=== PATIENT | female | born 1965 | race Caucasian/White ===

== ENCOUNTER 2016-12-06 04:29 | Emergency (ER) | payer MEDICARE, OTHER ==
[~2016-12-06] VITALS: Ht 160 cm; Wt 119.0 kg
[~2016-12-06 04:29] MED LIST: BENZ1 PO; DILA100C PO; LITH300 PO; NAPR250T57 PO; OMEP20TA PO; PALI234P IM; ROBA750T3 PO; ZOFR4TAB PO
[2016-12-06 04:34] VITALS: BP 153/74; PULSE 90; RESP 18; TEMP 98.2; O2SAT 97
[2016-12-06] MEDS ORDERED: LITH600C PO (04:40)
[2016-12-06] MEDS ORDERED: BACT800T5 PO (05:08)
--- NOTE | 2016-12-06 05:09 | PD ---
HPI Chief Complaint: Lump, Cyst, Hernia Time Seen by Provider: 04:52 Travel History International Travel<30 days: No Contact w/Intl Traveler<30days: No Traveled to known affect area: No History of Present Illness HPI The patient is a 51-year-old female who complains of a painful cyst on the skin of the right lower abdomen for 10 days. She states her last tetanus shot was approximately 5 years ago. PFSH Past Medical History Hx Anticoagulant Therapy: No Arthritis: Yes (SPINE) Asthma: Yes Autoimmune Disease: No Bipolar Disorder: Yes Anxiety: Yes Depression: Yes Heart Rhythm Problems: No Cancer: No Cardiovascular Problems: Yes (HEART MURMUR) High Cholesterol: Yes Chemotherapy: No Chest Pain: No Congestive Heart Failure: No COPD: No Cerebrovascular Accident: No Diabetes: No Diminished Hearing: Yes (SLIGHT [place] IN RIGHT EAR) Endocrine: Yes Gastrointestinal Disorders: Yes (HEARTBURN) GERD: Yes Genitourinary: No Headaches: No Hiatal Hernia: No Hypertension: Yes Immune Disorder: No Implanted Vascular Access Dvce: No Insomnia: Yes Kidney Stones: No Neurologic: Yes Psychiatric: Yes (history of Bipolar 1) Reproductive: No Respiratory: Yes (BRONCHITIS) Immunizations Current: Yes Migraines: No Radiation Therapy: No Renal Failure: No Schizophrenia: Yes Seizures: Yes (LAST SZ 10 YRS AGO, IS COMPLIANT WITH DILANTIN) Sickle Cell Disease: No Thyroid Disease: No Ulcer: Yes Tetanus Vaccination: > 5 Years Influenza Vaccination: Yes ?: Not Menopausal: Yes Ovarian Cysts: Yes (2 OVARIAN CYST) Dilation and Curettage (D&C): Yes Past Surgical History Abdominal Surgery: No AICD: No Arteriovenous Shunt: No Cardiac Surgery: No Ear Surgery: No Endocrine Surgery: No Eye Surgery: No Genitourinary Surgery: No Gynecologic Surgery: Yes Hysterectomy: No Insulin Pump: No Joint Replacement: No Pacemaker: No Thoracic Surgery: No Tonsillectomy: Yes Other Surgery: Yes (TUBES IN EARS A CHILD) Social History Alcohol Use: No Tobacco Use: Yes (03/08 PPD) Substance Use: No (denies ) Allergies-Medications (Allergen,Severity, Reaction): Coded Allergies: fluoxetine (Unverified Allergy, Intermediate, "ALMOST KILLED MYSELF", 12/06) haloperidol (Unverified Allergy, Intermediate, tremers, 12/06/16) hydroxyzine (Unverified Allergy, Intermediate, HALLUCINATIONS, 12/06/16) states she is on it now prochlorperazine (Unverified Allergy, Intermediate, HALUCINATION, 12/06/16) ziprasidone (Unverified Adverse Reaction, Intermediate, elevates bloos sugars, 12/06/16) Reported Meds & Prescriptions Reported Meds & Active Scripts Active Omeprazole 20 Mg Tab 20 Mg PO DAILY Dilantin (Phenytoin Extended) 100 Mg Cap 400 Mg PO BID Reported [place] Carbonate 600 Mg Cap 600 Mg PO BID Review of Systems Except as stated in HPI: all other systems reviewed are Neg Physical Exam Narrative GENERAL: Well-nourished, obese patient in slight apparent distress with her abscess/cellulitis. Her vital signs show blood pressure 153/74 but otherwise normal.. SKIN: Focused skin assessment warm/dry. There is a 1 cm diameter abscess on the skin near the belt line on the right. It is surrounded by 10 x 5 cm cellulitic area. HEAD: Normocephalic. EYES: No scleral icterus. No injection or drainage. NECK: Supple, trachea midline. No JVD or lymphadenopathy. CARDIOVASCULAR: Regular rate and rhythm without murmurs, gallops, or rubs. RESPIRATORY: Breath sounds equal bilaterally. No accessory muscle use. GASTROINTESTINAL: Abdomen soft, non-tender, nondistended. MUSCULOSKELETAL: No cyanosis, or edema. BACK: Nontender without obvious deformity. No CVA tenderness. Data Data Last Documented VS Vital Signs Date Time Temp Pulse Resp B/P (MAP) Pulse Ox O2 Delivery O2 Flow Rate FiO2 12/06/16 04:34 98.2 90 18 153/74 (100) 97 MDM Medical Decision Making Medical Screen Exam Complete: Yes Emergency Medical Condition: Yes Medical Record Reviewed: Yes Differential Diagnosis Abscess, cellulitis, sebaceous cyst Narrative Course The patient has a small abscess which is surrounded by a fairly large area of cellulitis. She'll be given Septra DS to take twice daily for 7 days. She needs to apply warm compresses to the area of the abscess 3 times daily for at least 5 days. If there are any problems, please return to the emergency department. Procedures Procedure Narrative The area was prepped with Betadine. Lidocaine field block was used for local anesthesia. Under sterile technique, a #11 blade was used and a 1 cm incision was made. A fair amount of pus was recovered for this small abscess. The patient tolerated the procedure fairly well. Diagnosis Primary Impression: Abscess Additional Impressions: Encounter for incision and drainage procedure Cellulitis Additional Instructions: For the first 4 days soak or train warm water in the shower on this abscess for about 30 minutes 3 times daily. After 4 days you can cut back to twice a day than once a day etc. The antibiotic is one tablet twice daily for 10 days. If you have problems, please return to emergency department. Med/Other Pt SpecificInfo: Prescription(s) given Scripts Sulfamethoxazole-Trimethoprim (Bactrim DS) 800-160 Mg Tab 1 TAB PO BID for Infection, #20 TAB 0 Refills Prov: Severino Mitchell MD 12/06/16 Disposition: 01 DISCHARGE HOME Condition: Stable Severino Mitchell MD Dec 06, 2016 05:09
[2016-12-06] MEDS ORDERED: SULFAMETHOXAZOLE-TRIMETHOPRIM DS 800-160 MG TAB PO ONE (05:15)
[2016-12-17] MEDS ORDERED: METO25TA3 PO (08:46)
[2016-12-17] MEDS ORDERED: AUGM500T7 PO (08:46)
[2016-12-17] MEDS ORDERED: METF500T PO (08:46)
[2016-12-17] MEDS ORDERED: GLIP5TAB8 PO (08:46)
[2016-12-17] MEDS ORDERED: GLUCKIT15 ×2 (08:49→08:51)
[2016-12-17] MEDS ORDERED: LANCETS1 MI1 ×3 (08:49→13:43)
[2016-12-17] MEDS ORDERED: GLUCTES12 ×3 (08:49→13:43)
[2016-12-17] MEDS ORDERED: OMEP20TA PO ×2 (08:49→08:51)
[2016-12-27] MEDS ORDERED: SERO100T PO (16:11)
[2016-12-27] MEDS ORDERED: COGE1INJ IM (16:11)
== END 2016-12-06 05:25 | disposition home or self-care (01) ==
LOC: PHED 04:29
DX: L02.211 Cutaneous abscess of abdominal wall (principal); E78.00 Pure hypercholesterolemia, unspecified; I10 Essential (primary) hypertension
CPT/HCPCS: 10060; 87070; 87205

== ENCOUNTER 2016-12-17 09:34 | Emergency (ER) | payer MEDICARE, OTHER ==
[~2016-12-17] VITALS: Ht 160 cm; Wt 120.0 kg
[~2016-12-17 09:34] MED LIST changes: +AUGM500T7 PO; +BACT800T5 PO; -BENZ1 PO; +GLIP5TAB8 PO; +GLUCKIT15; +GLUCTES12; +LANCETS1 MI1; -LITH300 PO; +LITH600C PO; +METF500T PO; +METO25TA3 PO; -NAPR250T57 PO; -PALI234P IM; -ROBA750T3 PO; -ZOFR4TAB PO
[2016-12-17 09:36] VITALS: BP 164/87; PULSE 95; RESP 15; TEMP 98.5; O2SAT 99
[2016-12-17] MEDS ORDERED: SODIUM CHLOR 0.9% 1000 ML INJ 1,000 ML IV ONE ×2 (09:56→10:26)
[2016-12-17] MEDS ORDERED: SODIUM CHLORIDE 0.9% FLUSH 10 ML FLUSH IVF PRN (10:00)
--- NOTE | 2016-12-17 10:03 | PD ---
HPI Chief Complaint: Abnormal Results Time Seen by Provider: 09:49 Travel History International Travel<30 days: No Contact w/Intl Traveler<30days: No Traveled to known affect area: No History of Present Illness HPI This is a 51-year-old female who presents to the emergency department with high blood sugar. She went to her primary care doctor this morning. She said she wasn't feeling well and has had a lot of nausea and abdominal cramping, and polyuria and polydypsia, constant, severe, worsening for several days. Patient was recently hospitalized at [facility] in the intensive care unit for high blood sugar. This is the first time she had been diagnosed with diabetes. She says she was given an vague injection 3 months ago which is a new medication for her. She says years ago she was started on Geodon and that caused her to have high blood sugar but when she got off of that her blood sugar was fine. PFSH Past Medical History Hx Anticoagulant Therapy: Yes (ASA) Arthritis: Yes (SPINE) Asthma: Yes Autoimmune Disease: No Bipolar Disorder: Yes Anxiety: Yes Depression: Yes Heart Rhythm Problems: No Cancer: No Cardiovascular Problems: Yes (HEART MURMUR) High Cholesterol: Yes Chemotherapy: No Chest Pain: No Congestive Heart Failure: No COPD: No Cerebrovascular Accident: No Diabetes: Yes (METFORMIN) Diminished Hearing: Yes (SLIGHT [place] IN RIGHT EAR) Endocrine: Yes Gastrointestinal Disorders: Yes (HEARTBURN) GERD: Yes Genitourinary: No Headaches: No Hiatal Hernia: No Hypertension: Yes Immune Disorder: No Implanted Vascular Access Dvce: No Insomnia: Yes Kidney Stones: No Neurologic: Yes Psychiatric: Yes (history of Bipolar 1) Reproductive: No Respiratory: Yes (BRONCHITIS) Immunizations Current: Yes Migraines: No Radiation Therapy: No Renal Failure: No Schizophrenia: Yes Seizures: Yes (LAST SZ 10 YRS AGO, IS COMPLIANT WITH DILANTIN) Sickle Cell Disease: No Thyroid Disease: No Ulcer: Yes Menopausal: Yes Ovarian Cysts: Yes (2 OVARIAN CYST) Dilation and Curettage (D&C): Yes Past Surgical History Abdominal Surgery: No AICD: No Arteriovenous Shunt: No Cardiac Surgery: No Ear Surgery: No Endocrine Surgery: No Eye Surgery: No Genitourinary Surgery: No Gynecologic Surgery: Yes Hysterectomy: No Insulin Pump: No Joint Replacement: No Pacemaker: No Thoracic Surgery: No Tonsillectomy: Yes Other Surgery: Yes (TUBES IN EARS A CHILD) Social History Alcohol Use: No Tobacco Use: Yes (1/2 PPD) Substance Use: No (denies ) Allergies-Medications (Allergen,Severity, Reaction): Coded Allergies: fluoxetine (Unverified Allergy, Intermediate, "ALMOST KILLED MYSELF", ) haloperidol (Unverified Allergy, Intermediate, tremers, 12/17/16) hydroxyzine (Unverified Allergy, Intermediate, HALLUCINATIONS, 12/17/16) states she is on it now prochlorperazine (Unverified Allergy, Intermediate, HALUCINATION, 12/17/16 ) ziprasidone (Unverified Adverse Reaction, Intermediate, elevates bloos sugars, 12/17/16) Reported Meds & Prescriptions Reported Meds & Active Scripts Active Glucocom Test Strips (Blood Glucose Test Strips) 1 Love Love Ea .ROUTE DIRECTED Lancets 1 Mis Mis Ea .ROUTE DIRECTED Glucocom Blood Glucose Mo W/Device (Device) 1 Kit Kit Kit .ROUTE DIRECTED Omeprazole 20 Mg Tab 20 Mg PO DAILY Metoprolol Tartrate 25 Mg Tab 25 Mg PO BID Dilantin (Phenytoin Extended) 100 Mg Cap 400 Mg PO BID Reported Metformin (Metformin HCl) 500 Mg Tab 500 Mg PO BIDPC Glipizide 5 Mg Tab 5 Mg PO BIDAC Take 30 minutes before a meal Augmentin (Amoxicillin-Clavulanate) 500-125 mg Tab 500 Mg PO Q8H [place] Carbonate 600 Mg Cap 600 Mg PO BID Review of Systems Except as stated in HPI: all other systems reviewed are Neg Physical Exam Narrative GENERAL:Well appearing, no acute distress SKIN: Focused skin assessment warm and dry. HEAD: Atraumatic. Normocephalic. EYES: Pupils equal and round. No injection or drainage. ENT: Moist mucous membranes NECK: Trachea midline. CARDIOVASCULAR: Regular rate and rhythm. No murmur appreciated. RESPIRATORY: Clear to auscultation. Breath sounds equal bilaterally. GASTROINTESTINAL: Abdomen soft, non-tender, nondistended. Induration in the right lower abdomen over an area where the patient reportedly had an incision and drainage. No erythema or fluctuance currently. AVIATION ELECTRICIAN: Some folliculitis with no definite abscess. MUSCULOSKELETAL: No obvious deformities. NEUROLOGICAL: Awake and alert. No obvious cranial nerve deficits. Moving all extremities. PSYCHIATRIC: Intermittently tearful. Data Data Last Documented VS Vital Signs Date Time Temp Pulse Resp B/P (MAP) Pulse Ox O2 Delivery O2 Flow Rate FiO2 12/17/16 10:13 85 18 155/91 (112) 98 Room Air 12/17/16 09:36 98.5 Orders Orders Complete Blood Count With Diff (12/17/16 09:56) Comprehensive Metabolic Panel (12/17/16 09:56) Beta Hydroxybutyrate (Acetone) (12/17/16 09:56) Urinalysis - C+S If Indicated (12/17/16 09:56) Ecg Monitoring (12/17/16 09:56) Iv Access Insert/Monitor (12/17/16 09:56) Oximetry (12/17/16 09:56) Sodium Chlor 0.9% 1000 Ml Inj (Ns 1000 M (12/17/16 09:56) Sodium Chlor 0.9% 1000 Ml Inj (Ns 1000 M (12/17/16 10:26) Sodium Chloride 0.9% Flush (Ns Flush) (12/17/16 10:00) Insulin Human Regular Inj (Novolin R Inj (12/17/16 11:45) Insulin Human Regular Inj (Novolin R Inj (12/17/16 12:15) Labs Laboratory Tests Test 12/17/16 10:10 White Blood Count 7.9 TH/MM3 Red Blood Count 4.80 MIL/MM3 Hemoglobin 14.0 GM/DL Hematocrit 40.4 % Mean Corpuscular Volume 84.3 FL Mean Corpuscular Hemoglobin 29.1 PG Mean Corpuscular Hemoglobin Concent 34.6 % Red Cell Distribution Width 13.6 % Platelet Count 308 TH/MM3 Mean Platelet Volume 8.3 FL Neutrophils (%) (Auto) 65.0 % Lymphocytes (%) (Auto) 22.3 % Monocytes (%) (Auto) 9.1 % Eosinophils (%) (Auto) 2.4 % Basophils (%) (Auto) 1.2 % Neutrophils # (Auto) 5.1 TH/MM3 Lymphocytes # (Auto) 1.8 TH/MM3 Monocytes # (Auto) 0.7 TH/MM3 Eosinophils # (Auto) 0.2 TH/MM3 Basophils # (Auto) 0.1 TH/MM3 CBC Comment DIFF FINAL Differential Comment Blood Urea Nitrogen 7 MG/DL Creatinine 0.61 MG/DL Random Glucose 393 MG/DL Total Protein 6.9 GM/DL Albumin 3.3 GM/DL Calcium Level 10.2 MG/DL Alkaline Phosphatase 155 U/L Aspartate Amino Transf (AST/SGOT) 69 U/L Alanine Aminotransferase (ALT/SGPT) 74 U/L Total Bilirubin 0.3 MG/DL Sodium Level 131 MEQ/L Potassium Level 3.8 MEQ/L Chloride Level 100 MEQ/L Carbon Dioxide Level 20.6 MEQ/L Anion Gap 10 MEQ/L Estimat Glomerular Filtration Rate 104 ML/MIN B-Hydroxybutyrate 0.86 MMOL/L MDM Medical Decision Making Medical Screen Exam Complete: Yes Emergency Medical Condition: Yes Interpretation(s) Afebrile, mild tachycardia, hypertensive No leukocytosis Mild hyponatremia Hyperglycemia Beta hydroxybutyrate slightly higher than normal Anion gap is normal Differential Diagnosis Hyperglycemia, DKA, electrolyte abnormality Narrative Course This is a 51-year-old female who presents to the emergency department with fatigue, nausea, polydipsia and polyuria. She has a new diagnosis of diabetes. Labs demonstrate hyperglycemia with no anion gap. She was given 2 L of IV fluid and 6 units of subcutaneous insulin. I spoke to her primary care physician who would like to increase her metformin 1000 twice a day. I think the patient can be managed as an outpatient. She was also given some counseling regarding diabetic diet. Diagnosis Primary Impression: Type 2 diabetes mellitus Qualified Codes: E11.9 - Type 2 diabetes mellitus without complications Patient Instructions: General Instructions Additional Instructions: If you develop severe chest pain, shortness of breath, sweating, lightheadedness , dizziness or difficulty breathing return to the emergency department immediately. Followup with your primary care physician in 2-3 days if your symptoms are not resolved. Med/Other Pt SpecificInfo: Prescription(s) given Scripts Metformin (Metformin) 1,000 Mg Tab 1000 MG PO BIDPC for Blood Sugar Management, #60 TAB 0 Refills Prov: Cyndy Nieves MD 12/17/16 Disposition: 01 DISCHARGE HOME Condition: Stable Cyndy Nieves MD Dec 17, 2016 10:03
[2016-12-17 10:13] VITALS: BP 155/91; PULSE 85; RESP 18; O2SAT 100; O2SAT 98
[2016-12-17 10:45] LABS: AUTOMATED NEUTROPHIL # 5.1 TH/MM3 (1.8-7.7); BASOPHIL # 0.1 TH/MM3 (0-0.2); BASOPHIL % 1.2 % (0.0-2.0); EOSINOPHIL # 0.2 TH/MM3 (0-0.4); EOSINOPHIL % 2.4 % (0.0-4.0); HEMATOCRIT 40.4 % (35.0-46.0); HEMO FLAGS DIFF FINAL; LYMPH % 22.3 % (9.0-44.0); LYMPHOCYTE # 1.8 TH/MM3 (1.0-4.8); MEAN CELL VOLUME 84.3 FL (80.0-100.0); MEAN CORPUSCULAR HEMOGLOBIN 29.1 PG (27.0-34.0); MEAN CORPUSCULAR HGB CONC 34.6 % (32.0-36.0); MONO % 9.1 % (0.0-8.0); PLATELET COUNT 308 TH/MM3 (150-450); RED CELL DISTRIBUTION WIDTH 13.6 % (11.6-17.2); WHITE BLOOD COUNT 7.9 TH/MM3 (4.0-11.0)
[2016-12-17 11:00] LABS: ANION GAP 10 MEQ/L (5-15); AST (GOT) 69 U/L (15-37); BICARBONATE 20.6 MEQ/L (21.0-32.0); BLOOD UREA NITROGEN 7 MG/DL (7-18); CHLORIDE 100 MEQ/L (98-107); GLOMERULAR FILTRATION RATE 104 ML/MIN (>89); POTASSIUM 3.8 MEQ/L (3.5-5.1); SODIUM (NA) 131 MEQ/L (136-145)
[2016-12-17 11:06] LABS: ALKALINE PHOSPHATASE 155 U/L (45-117); ALT (GPT) 74 U/L (10-53); BETA-HYDROXYBUTYRATE 0.86 MMOL/L (0.00-0.39); TOTAL BILIRUBIN ADULT 0.3 MG/DL (0.2-1.0)
[2016-12-17] MEDS ORDERED: INSULIN HUMAN REGULAR 1,000 UNITS/10 ML VIAL IV PUSH ONE (11:45)
[2016-12-17] MEDS ORDERED: INSULIN HUMAN REGULAR 1,000 UNITS/10 ML VIAL SQ ONE (12:15)
[2016-12-17] MEDS ORDERED: METF1000 PO (12:25)
[2016-12-17] MEDS ORDERED: LANCETS1 MI1 (13:43)
[2016-12-17] MEDS ORDERED: GLUCTES12 (13:43)
[2016-12-17 13:44] LABS: BLOOD, URINE NEG (NEG); GLUCOSE,URINE 1000 mg/dL (NEG); KETONE, URINE 10 mg/dL (NEG); NITRITE,URINE NEG (NEG); PH, URINE 6.5 (5.0-8.5); SQUAMOUS EPITHELIAL CELL URINE 4 /hpf (0-5); URINE COLOR YELLOW (YELLW/STRAW)
[2016-12-17 13:45] LABS: COMMENT (UR) CULT NOT INDICATED; CULTURE IF INDICATED CULT NOT INDICATED
[2016-12-27] MEDS ORDERED: SERO100T PO (16:11)
[2016-12-27] MEDS ORDERED: COGE1INJ IM (16:11)
== END 2016-12-17 14:01 | disposition home or self-care (01) ==
LOC: NEPE 09:34
DX: E11.9 Type 2 diabetes mellitus without complications (principal); R35.8 Other polyuria; J45.909 Unspecified asthma, uncomplicated; F31.9 Bipolar disorder, unspecified; F41.9 Anxiety disorder, unspecified; E78.5 Hyperlipidemia, unspecified; Z79.84 Long term (current) use of oral hypoglycemic drugs; K21.9 Gastro-esophageal reflux disease without esophagitis; I10 Essential (primary) hypertension; F20.9 Schizophrenia, unspecified; F17.200 Nicotine dependence, unspecified, uncomplicated; Z79.899 Other long term (current) drug therapy
CPT/HCPCS: 80053; 81001; 82010; 85025; 96360; 96372; 99284; J1815; J7030

== ENCOUNTER 2016-12-19 03:07 | Emergency (ER) | payer MEDICARE, OTHER ==
[~2016-12-19] VITALS: Ht 160 cm; Wt 120.0 kg
[~2016-12-19 03:07] MED LIST changes: -BACT800T5 PO; +METF1000 PO
[2016-12-19 03:11] VITALS: BP 163/95; PULSE 99; RESP 16; TEMP 97.8; O2SAT 98
--- NOTE | 2016-12-19 04:07 | PD ---
HPI Chief Complaint: Psychiatric Symptoms Time Seen by Provider: 03:59 Travel History International Travel<30 days: No Contact w/Intl Traveler<30days: No Traveled to known affect area: No History of Present Illness HPI 51-year-old white female presents to emergency department requesting psychological evaluation treatment. She states that she is feeling increasingly depressed and having suicidal thoughts. She feels that her medications are not working for her. She states that given long-acting INVega she states that this has caused her diabetes to be out of control. She also states that she does not feel that her medications are working for her. She has discontinued all of her medications according to the patient. This is compounded by the fact that she is homeless. She states that her cane Marybeth displaced her from her home. She had been living out in the [facility] with her partner. She states her partner was arrested and she is now in longterm. Her family is accusing her of stealing from them. Patient denies any toxic ingestions. She does have a history of chronic back pain as well as her diabetes and mental health. He states that she typically gets injections every couple months. She denies any homicidal ideation. Patient endorses polyuria and polydipsia. PFSH Past Medical History Hx Anticoagulant Therapy: Yes (ASA) Arthritis: Yes (SPINE) Asthma: Yes Autoimmune Disease: No Bipolar Disorder: Yes Anxiety: Yes Depression: Yes Heart Rhythm Problems: No Cancer: No Cardiovascular Problems: Yes (HEART MURMUR) High Cholesterol: Yes Chemotherapy: No Chest Pain: No Congestive Heart Failure: No COPD: No Cerebrovascular Accident: No Diabetes: Yes (METFORMIN) Patient Takes Glucophage: No (12/18/20161929) Diminished Hearing: Yes (SLIGHT [place] IN RIGHT EAR) Endocrine: Yes Gastrointestinal Disorders: Yes (HEARTBURN) GERD: Yes Genitourinary: No Headaches: No Hiatal Hernia: No Hypertension: Yes Immune Disorder: No Implanted Vascular Access Dvce: No Insomnia: Yes Kidney Stones: No Neurologic: Yes Psychiatric: Yes (history of Bipolar 1) Reproductive: No Respiratory: Yes (BRONCHITIS) Immunizations Current: Yes Migraines: No Radiation Therapy: No Renal Failure: No Schizophrenia: Yes Seizures: Yes (LAST SZ 10 YRS AGO, IS COMPLIANT WITH DILANTIN) Sickle Cell Disease: No Thyroid Disease: No Ulcer: Yes Tetanus Vaccination: Unknown Influenza Vaccination: Yes ?: Not Menopausal: Yes Ovarian Cysts: Yes (2 OVARIAN CYST) Dilation and Curettage (D&C): Yes Past Surgical History Abdominal Surgery: No AICD: No Arteriovenous Shunt: No Cardiac Surgery: No Ear Surgery: No Endocrine Surgery: No Eye Surgery: No Genitourinary Surgery: No Gynecologic Surgery: Yes Hysterectomy: No Insulin Pump: No Joint Replacement: No Pacemaker: No Thoracic Surgery: No Tonsillectomy: Yes Other Surgery: Yes (TUBES IN EARS A CHILD) Social History Alcohol Use: No Tobacco Use: Yes (1-2 cig/day) Substance Use: No (denies ) Allergies-Medications (Allergen,Severity, Reaction): Coded Allergies: fluoxetine (Unverified Allergy, Intermediate, "ALMOST KILLED MYSELF", ) haloperidol (Unverified Allergy, Intermediate, tremers, 12/17/16) hydroxyzine (Unverified Allergy, Intermediate, HALLUCINATIONS, 12/17/16) states she is on it now prochlorperazine (Unverified Allergy, Intermediate, HALUCINATION, 12/17/16 ) ziprasidone (Unverified Adverse Reaction, Intermediate, elevates bloos sugars, 12/17/16) Reported Meds & Prescriptions Reported Meds & Active Scripts Active Glucocom Test Strips (Blood Glucose Test Strips) 1 Love Love Ea .ROUTE DIRECTED Lancets 1 Mis Mis Ea .ROUTE DIRECTED Metformin (Metformin HCl) 1,000 Mg Tab 1,000 Mg PO BIDPC Glucocom Blood Glucose Mo W/Device (Device) 1 Kit Kit Kit .ROUTE DIRECTED Omeprazole 20 Mg Tab 20 Mg PO DAILY Metoprolol Tartrate 25 Mg Tab 25 Mg PO BID Dilantin (Phenytoin Extended) 100 Mg Cap 400 Mg PO BID Reported Augmentin (Amoxicillin-Clavulanate) 500-125 mg Tab 500 Mg PO Q8H [place] Carbonate 600 Mg Cap 600 Mg PO BID Review of Systems Except as stated in HPI: all other systems reviewed are Neg General / Constitutional: No: Fever Eyes: No: Visual changes HENT: No: Headaches Cardiovascular: No: Chest Pain or Discomfort Respiratory: No: Shortness of Breath Gastrointestinal: No: Abdominal Pain Genitourinary: No: Dysuria Musculoskeletal: No: Pain Skin: No Rash Neurologic: No: Weakness Psychiatric: Positive: Anxiety, Depression, Suicidal Ideations, Mood Disorder, No: Disorder of Thought, Homicidal Ideation Endocrine: Positive: Polyuria, Polydipsia Hematologic/Lymphatic: No: Easy Bruising Physical Exam Narrative GENERAL: Morbidly obese, well-developed patient. SKIN: Warm and dry. HEAD: Normocephalic and atraumatic. EYES: No scleral icterus. No injection or drainage. ENT: No nasal drainage noted. Mucous membranes pink. Airway patent. NECK: Supple, trachea midline. Moves head freely without obvious discomfort. CARDIOVASCULAR: Regular rate and rhythm without murmurs, gallops, or rubs. RESPIRATORY: Breath sounds equal bilaterally. No accessory muscle use. GASTROINTESTINAL: Abdomen soft, non-tender, nondistended. EXTREMITIES: No cyanosis or edema. BACK: Nontender without obvious deformity. No CVA tenderness. NEURO: Patient is alert and oriented. no sensorimotor deficits. Nonfocal. Normal speech. PSYCH: No delusions. No auditory or visual hallucinations. Data Data Last Documented VS Vital Signs Date Time Temp Pulse Resp B/P (MAP) Pulse Ox O2 Delivery O2 Flow Rate FiO2 12/19/16 03:11 97.8 99 16 163/95 (117) 98 Room Air Orders Orders Complete Blood Count With Diff (12/19/16 03:52) Comprehensive Metabolic Panel (12/19/16 03:52) Urinalysis - C+S If Indicated (12/19/16 03:52) Psych Screen (12/19/16 03:52) [place] (Li) (12/19/16 03:52) Drug Screen, Random Urine (12/19/16 03:52) Alcohol (Ethanol) (12/19/16 03:52) Phenytoin (Dilantin) (12/19/16 03:52) Insulin Human Regular Inj (Novolin R Inj (12/19/16 07:00) Labs Laboratory Tests Test 12/19/16 04:00 12/19/16 04:12 White Blood Count 8.2 TH/MM3 Red Blood Count 4.91 MIL/MM3 Hemoglobin 13.9 GM/DL Hematocrit 41.6 % Mean Corpuscular Volume 84.7 FL Mean Corpuscular Hemoglobin 28.3 PG Mean Corpuscular Hemoglobin Concent 33.5 % Red Cell Distribution Width 13.6 % Platelet Count 295 TH/MM3 Mean Platelet Volume 8.2 FL Neutrophils (%) (Auto) 59.0 % Lymphocytes (%) (Auto) 26.0 % Monocytes (%) (Auto) 11.0 % Eosinophils (%) (Auto) 2.8 % Basophils (%) (Auto) 1.2 % Neutrophils # (Auto) 4.8 TH/MM3 Lymphocytes # (Auto) 2.1 TH/MM3 Monocytes # (Auto) 0.9 TH/MM3 Eosinophils # (Auto) 0.2 TH/MM3 Basophils # (Auto) 0.1 TH/MM3 CBC Comment DIFF FINAL Differential Comment Blood Urea Nitrogen 8 MG/DL Creatinine 0.67 MG/DL Random Glucose 365 MG/DL Total Protein 6.5 GM/DL Albumin 3.1 GM/DL Calcium Level 9.4 MG/DL Alkaline Phosphatase 162 U/L Aspartate Amino Transf (AST/SGOT) 50 U/L Alanine Aminotransferase (ALT/SGPT) 110 U/L Total Bilirubin 0.2 MG/DL Sodium Level 132 MEQ/L Potassium Level 4.0 MEQ/L Chloride Level 100 MEQ/L Carbon Dioxide Level 23.7 MEQ/L Anion Gap 8 MEQ/L Estimat Glomerular Filtration Rate 94 ML/MIN Phenytoin (Dilantin) Level LESS THAN 0.4 MCG/ML [place] Level LESS THAN 0.1 MEQ/L Ethyl Alcohol Level LESS THAN 3 MG/DL Urine Color LIGHT-YELLOW Urine Turbidity CLEAR Urine pH 6.5 Urine Specific [place] 1.017 Urine Protein NEG mg/dL Urine Glucose (UA) 1000 mg/dL Urine Ketones NEG mg/dL Urine Occult Blood NEG Urine Nitrite NEG Urine Bilirubin NEG Urine Urobilinogen LESS THAN 2.0 MG/DL Urine Leukocyte Esterase NEG Urine WBC 1 /hpf Urine Squamous Epithelial Cells <1 /hpf Microscopic Urinalysis Comment CULT NOT INDICATED Urine Opiates Screen NEG Urine Barbiturates Screen NEG Urine Amphetamines Screen NEG Urine Benzodiazepines Screen NEG Urine Cocaine Screen NEG Urine Cannabinoids Screen NEG MDM Medical Decision Making Medical Screen Exam Complete: Yes Emergency Medical Condition: Yes Medical Record Reviewed: Yes Interpretation(s) Laboratory Tests Test 12/19/16 04:00 12/19/16 04:12 White Blood Count 8.2 TH/MM3 Red Blood Count 4.91 MIL/MM3 Hemoglobin 13.9 GM/DL Hematocrit 41.6 % Mean Corpuscular Volume 84.7 FL Mean Corpuscular Hemoglobin 28.3 PG Mean Corpuscular Hemoglobin Concent 33.5 % Red Cell Distribution Width 13.6 % Platelet Count 295 TH/MM3 Mean Platelet Volume 8.2 FL Neutrophils (%) (Auto) 59.0 % Lymphocytes (%) (Auto) 26.0 % Monocytes (%) (Auto) 11.0 % Eosinophils (%) (Auto) 2.8 % Basophils (%) (Auto) 1.2 % Neutrophils # (Auto) 4.8 TH/MM3 Lymphocytes # (Auto) 2.1 TH/MM3 Monocytes # (Auto) 0.9 TH/MM3 Eosinophils # (Auto) 0.2 TH/MM3 Basophils # (Auto) 0.1 TH/MM3 CBC Comment DIFF FINAL Differential Comment Blood Urea Nitrogen 8 MG/DL Creatinine 0.67 MG/DL Random Glucose 365 MG/DL Total Protein 6.5 GM/DL Albumin 3.1 GM/DL Calcium Level 9.4 MG/DL Alkaline Phosphatase 162 U/L Aspartate Amino Transf (AST/SGOT) 50 U/L Alanine Aminotransferase (ALT/SGPT) 110 U/L Total Bilirubin 0.2 MG/DL Sodium Level 132 MEQ/L Potassium Level 4.0 MEQ/L Chloride Level 100 MEQ/L Carbon Dioxide Level 23.7 MEQ/L Anion Gap 8 MEQ/L Estimat Glomerular Filtration Rate 94 ML/MIN Phenytoin (Dilantin) Level LESS THAN 0.4 MCG/ML [place] Level LESS THAN 0.1 MEQ/L Ethyl Alcohol Level LESS THAN 3 MG/DL Urine Color LIGHT-YELLOW Urine Turbidity CLEAR Urine pH 6.5 Urine Specific [place] 1.017 Urine Protein NEG mg/dL Urine Glucose (UA) 1000 mg/dL Urine Ketones NEG mg/dL Urine Occult Blood NEG Urine Nitrite NEG Urine Bilirubin NEG Urine Urobilinogen LESS THAN 2.0 MG/DL Urine Leukocyte Esterase NEG Urine WBC 1 /hpf Urine Squamous Epithelial Cells <1 /hpf Microscopic Urinalysis Comment CULT NOT INDICATED Urine Opiates Screen NEG Urine Barbiturates Screen NEG Urine Amphetamines Screen NEG Urine Benzodiazepines Screen NEG Urine Cocaine Screen NEG Urine Cannabinoids Screen NEG Differential Diagnosis MDM: High Differential diagnoses: Schizophrenia, schizoaffective disorder, bipolar, anxiety, depression, adjustment reaction, mood disorder NOS, ODD, depressive disorder NOS, dementia, dementia with agitation, psychosis NOS, substance induced mood disorder, intermittent explosive disorder, Asperger syndrome, infection,electrolyte abnormality, malingering. Narrative Course Mental health screening discussed with the patient. Psychiatric screen ordered. The patient is been medically cleared. Diagnosis Primary Impression: Medical clearance for psychiatric admission Additional Impression: Diabetes mellitus with hyperglycemia Qualified Codes: E11.65 - Type 2 diabetes mellitus with hyperglycemia Condition: Stable John Bourgeois Dec 19, 2016 04:07
[2016-12-19 04:29] LABS: AUTOMATED NEUTROPHIL # 4.8 TH/MM3 (1.8-7.7); BASOPHIL # 0.1 TH/MM3 (0-0.2); BASOPHIL % 1.2 % (0.0-2.0); EOSINOPHIL # 0.2 TH/MM3 (0-0.4); EOSINOPHIL % 2.8 % (0.0-4.0); HEMATOCRIT 41.6 % (35.0-46.0); HEMO FLAGS DIFF FINAL; LYMPHOCYTE # 2.1 TH/MM3 (1.0-4.8); MEAN CELL VOLUME 84.7 FL (80.0-100.0); MEAN CORPUSCULAR HEMOGLOBIN 28.3 PG (27.0-34.0); MEAN CORPUSCULAR HGB CONC 33.5 % (32.0-36.0); PLATELET COUNT 295 TH/MM3 (150-450); RED BLOOD COUNT 4.91 MIL/MM3 (4.00-5.30); RED CELL DISTRIBUTION WIDTH 13.6 % (11.6-17.2); WHITE BLOOD COUNT 8.2 TH/MM3 (4.0-11.0)
[2016-12-19 04:38] LABS: BLOOD, URINE NEG (NEG); COMMENT (UR) CULT NOT INDICATED; CULTURE IF INDICATED CULT NOT INDICATED; GLUCOSE,URINE 1000 mg/dL (NEG); KETONE, URINE NEG (NEG); NITRITE,URINE NEG (NEG); PH, URINE 6.5 (5.0-8.5); SQUAMOUS EPITHELIAL CELL URINE <1 /hpf (0-5); URINE COLOR LIGHT-YELLOW (YELLW/STRAW)
[2016-12-19 05:05] LABS: ALKALINE PHOSPHATASE 162 U/L (45-117); TOTAL BILIRUBIN ADULT 0.2 MG/DL (0.2-1.0)
[2016-12-19 05:43] LABS: ALT (GPT) 110 U/L (10-53); ANION GAP 8 MEQ/L (5-15); AST (GOT) 50 U/L (15-37); BICARBONATE 23.7 MEQ/L (21.0-32.0); BLOOD UREA NITROGEN 8 MG/DL (7-18); CHLORIDE 100 MEQ/L (98-107); GLOMERULAR FILTRATION RATE 94 ML/MIN (>89); SODIUM (NA) 132 MEQ/L (136-145)
[2016-12-19 05:44] LABS: ALCOHOL LESS THAN 3 MG/DL (0-5)
[2016-12-19] MEDS ORDERED: INSULIN HUMAN REGULAR 1,000 UNITS/10 ML VIAL SQ ONE (07:00)
--- NOTE | 2016-12-19 13:47 | PD ---
Physical Exam Time Seen by Provider: 13:40 Narrative This is a 51-year-old female that presented voluntarily for psych evaluation and is now wanting to leave without seeing the psychiatrist. Data Data Last Documented VS Vital Signs Date Time Temp Pulse Resp B/P (MAP) Pulse Ox O2 Delivery O2 Flow Rate FiO2 12/19/16 03:11 97.8 99 16 163/95 (117) 98 Room Air Orders Orders Complete Blood Count With Diff (12/19/16 03:52) Comprehensive Metabolic Panel (12/19/16 03:52) Urinalysis - C+S If Indicated (12/19/16 03:52) Psych Screen (12/19/16 03:52) [place] (Li) (12/19/16 03:52) Drug Screen, Random Urine (12/19/16 03:52) Alcohol (Ethanol) (12/19/16 03:52) Phenytoin (Dilantin) (12/19/16 03:52) Insulin Human Regular Inj (Novolin R Inj (12/19/16 07:00) Ed Discharge Order (12/19/16 13:51) Labs Laboratory Tests Test 12/19/16 04:00 12/19/16 04:12 White Blood Count 8.2 TH/MM3 Red Blood Count 4.91 MIL/MM3 Hemoglobin 13.9 GM/DL Hematocrit 41.6 % Mean Corpuscular Volume 84.7 FL Mean Corpuscular Hemoglobin 28.3 PG Mean Corpuscular Hemoglobin Concent 33.5 % Red Cell Distribution Width 13.6 % Platelet Count 295 TH/MM3 Mean Platelet Volume 8.2 FL Neutrophils (%) (Auto) 59.0 % Lymphocytes (%) (Auto) 26.0 % Monocytes (%) (Auto) 11.0 % Eosinophils (%) (Auto) 2.8 % Basophils (%) (Auto) 1.2 % Neutrophils # (Auto) 4.8 TH/MM3 Lymphocytes # (Auto) 2.1 TH/MM3 Monocytes # (Auto) 0.9 TH/MM3 Eosinophils # (Auto) 0.2 TH/MM3 Basophils # (Auto) 0.1 TH/MM3 CBC Comment DIFF FINAL Differential Comment Blood Urea Nitrogen 8 MG/DL Creatinine 0.67 MG/DL Random Glucose 365 MG/DL Total Protein 6.5 GM/DL Albumin 3.1 GM/DL Calcium Level 9.4 MG/DL Alkaline Phosphatase 162 U/L Aspartate Amino Transf (AST/SGOT) 50 U/L Alanine Aminotransferase (ALT/SGPT) 110 U/L Total Bilirubin 0.2 MG/DL Sodium Level 132 MEQ/L Potassium Level 4.0 MEQ/L Chloride Level 100 MEQ/L Carbon Dioxide Level 23.7 MEQ/L Anion Gap 8 MEQ/L Estimat Glomerular Filtration Rate 94 ML/MIN Phenytoin (Dilantin) Level LESS THAN 0.4 MCG/ML [place] Level LESS THAN 0.1 MEQ/L Ethyl Alcohol Level LESS THAN 3 MG/DL Urine Color LIGHT-YELLOW Urine Turbidity CLEAR Urine pH 6.5 Urine Specific [place] 1.017 Urine Protein NEG mg/dL Urine Glucose (UA) 1000 mg/dL Urine Ketones NEG mg/dL Urine Occult Blood NEG Urine Nitrite NEG Urine Bilirubin NEG Urine Urobilinogen LESS THAN 2.0 MG/DL Urine Leukocyte Esterase NEG Urine WBC 1 /hpf Urine Squamous Epithelial Cells <1 /hpf Microscopic Urinalysis Comment CULT NOT INDICATED Urine Opiates Screen NEG Urine Barbiturates Screen NEG Urine Amphetamines Screen NEG Urine Benzodiazepines Screen NEG Urine Cocaine Screen NEG Urine Cannabinoids Screen NEG [facility] Supervised Visit with [facility]: No Narrative Course 51-year-old female who came in voluntarily for psych evaluation. She had originally come in because her blood sugars were elevated. She had been feeling depressed and having thoughts of suicide. At this time the patient is ready to go home and does not want to continue to stay to see psych. She currently denies suicidal or homicidal ideations. Her girlfriend was arrested yesterday and she was feeling down about that. She has an appointment with [facility] tomorrow with Allie Pendleton, case management. She followed up with [facility] last week and was given medications but was unable to fill them because she was living in the [facility]. member services coordinator at [facility] is helping place her in a home next month. She is currently staying at a house on [facility], so has a place to go. She has medications for her diabetes at home. The patient states she knows that she can return to the emergency department if she needs to. I feel the patient is stable for discharge. She contracts safety. I do not feel she is a threat to herself or others. She has plans for follow-up outpatient. Patient is cleared for discharge. Diagnosis Primary Impression: Diabetes mellitus with hyperglycemia Qualified Codes: E11.65 - Type 2 diabetes mellitus with hyperglycemia Referrals: [facility] (Out patient) [facility] Primary Care Physician Psychiatrist Cresencio ESCALONA Behavioral Patient Instructions: Depression (ED), General Instructions Additional Instruction: Contract safety to your self and others Follow-up with psychiatry Follow-up with primary care provider Follow-up with Doug Cao Return to the emergency department immediately with worsening of symptoms Med/Other Pt SpecificInfo: No Change to Meds, No Meds Exist/No RX given Disposition: 01 DISCHARGE HOME Condition: Stable Sofi Haas Dec 19, 2016 13:47
[2016-12-27] MEDS ORDERED: SERO100T PO (16:11)
[2016-12-27] MEDS ORDERED: COGE1INJ IM (16:11)
== END 2016-12-19 15:44 | disposition home or self-care (01) ==
LOC: NEPD 03:07
DX: E11.65 Type 2 diabetes mellitus with hyperglycemia (principal); I10 Essential (primary) hypertension; E78.00 Pure hypercholesterolemia, unspecified; H91.91 Unspecified hearing loss, right ear; Z72.0 Tobacco use; Z79.82 Long term (current) use of aspirin; Z79.84 Long term (current) use of oral hypoglycemic drugs; Z79.899 Other long term (current) drug therapy; Z87.09 Personal history of other diseases of the respiratory system; Z86.79 Personal history of other diseases of the circulatory system; Z86.59 Personal history of other mental and behavioral disorders; Z87.19 Personal history of other diseases of the digestive system; Z86.69 Personal history of other diseases of the nervous system and sense organs
CPT/HCPCS: 80053; 80178; 80185; 80307; 81001; 85025; 96372; 99284; J1815